=== PATIENT | male | born 1995 | race Hispanic/Latino ===

== ENCOUNTER 2016-12-17 06:37 | Day surgery (SDC) | payer OTHER ==
[2016-12-17] VITALS (9 sets, daily range): BP systolic 89–119; BP diastolic 59–76; PULSE 60–78; RESP 15–22; O2SAT 98–100
[~2016-12-17] VITALS: Ht 165.1 cm; Wt 64.9 kg
[~2016-12-17 06:37] MED LIST: CeFAZolin Inj 2 GM in IV Premix 1 EACH IV ONE
[2016-12-17] MEDS ORDERED: MetoCLOpramide 5 mg/mL 2 mL Inj ONE (06:38)
[2016-12-17] MEDS ORDERED: Ketamine 10 mg/mL 20 mL Inj ONE (06:38)
[2016-12-17] MEDS ORDERED: Lidocaine PF 1% 30 mL Inj ONE (06:38)
[2016-12-17] MEDS ORDERED: Dexamethasone 4 mg/mL Inj ONE (06:38)
[2016-12-17] MEDS ORDERED: Propofol 10,000 mCg/mL 20 mL Inj ONE (06:38)
[2016-12-17] MEDS ORDERED: Ondansetron 2 mg/mL 2 mL Inj ONE (06:38)
[2016-12-17] MEDS ORDERED: fentaNYL-PF 50 mCg/mL 2 mL Inj ONE (06:38)
[2016-12-17] MEDS ORDERED: CeFAZolin 2 Gm/50 mL D5W Duplex Bag IV ONE (07:05)
[2016-12-17] MEDS: Lactated Ringer's 1,000 ML IV SCH ×2 (07:11→08:36)
--- NOTE | 2016-12-17 08:31 | PCM.HPANE ---
Patient Data Date of Service: Dec 17, 2016 Surgeon Admitting Provider: Attending Provider:Zoila Hardy MD Primary Care Physician:Millie Other Provider:Diego Alfred Anesthesia Reason for Visit Left Kidney Stone Ht/WT & BMI Height (Feet): 5 Height (Inches): 5 Weight (Kilograms): 64.9 Body Mass Index 23.00 Allergies Coded Allergies: Penicillins (Verified Allergy, Unknown, Rash, 12/16/16) Past Anesthesia History Anesthesia History: Denies:: Abnormal Airway, Anesthesia Reactions, Difficult Intubation, Fam Anesthesia Reaction, Fam Malignant Hypertherm, Malignant Hyperthermia Diabetes History Hx Diabetes?: No MRSA MRSA: No Medications Hypertension Medication: No Home Meds Incl Beta Jess: No No Active Prescriptions or Reported Meds History History of ENT Problems?: No HEENT History: Denies:: Abnormal Airway Difficult Intubation Dysphagia Hearing Problem Sinus Problem TMJ Denture Type: None Teeth Condition: Within Normal Limits Hx of Heart Problems?: No Cardiovascular History: Denies:: AICD Abdominal Aortic Aneurism Atrial Fibrillation Cardiac Surgery Chest Pain Congestive Heart Failure Coronary Artery Disease Edema Heart Murmur Hypertension Irregular Heartbeat Pacemaker Peripheral Vascular Rheumatic Fever Thrombophlebitis Valvular Heart Disease Hx of Respiratory Problem?: No Respiratory History: Denies:: Dyspnea Use of C-PAP Machine Use of Inhalers / NEBS Hx Neurologic Problems?: No Neurological History: Denies:: CVA Seizures TIA Other Neurological Pertinent: no LE neuropathy/radiculopathy Hx of GI Problems?: No Gastrointestinal History: Denies:: Gastroesphageal Reflux Liver Disease Hx of Problems?: Yes Genitourinary History: Positive for:: Kidney Stones (LEFT-SIDED) Denies:: HX of Hemodialysis HX of Peritoneal Dialysis: No Male Hx: Denies:: Prostate Problems Scrotal Mass Testicular Surgery Skin History: Denies:: History Skin Disorders? Pressure Ulcers Hx Musculoskeletal Problems?: No Musculoskeletal History: Positive for:: Musculoskeletal Trauma (thoracic & lumbar back pain) Hx of Psycho/Social Problems?: No Hx Surgeries?: No Other History: Denies:: Cancer Endocrine Disease Hospitalization Thyroid Disease History Blood Transfusions: Positive for:: Accept Blood Products? Denies:: Blood Transfusions Hx Diabetes: No Hx Alcohol Use: YesAlcoholic Drinks Per Day: 8 mixed drinks a weekHx Substance Use: No Smoking Status: Former Smoker (quit 3yrs ago) Stop/Bang Treated for Sleep Apnea?: No Do You Have a CPAP Machine?: No S-Snoring: Do You Snore Loudly: No T-Tired: feel tired, fatigued: No O-Obsered: Observed not breath: No P-Blood Pressure: treated: No B- Body Mass Index > 35 kg/m2: No A- Age over 50: No N- Neck Large Circumference: No G- Gender Male: Yes REGINALDO Total Score: 1 REGINALDO Risk Assessment: Low Risk, <3 Yes Risk Assessment Category Category 1A: Patient has history of documented sleep apnea, and HAS NOT received any narcotic, sedative or anesthesia administration during this stay. Category 1B: Patient has history of documented sleep apnea, and HAS received any narcotic , sedative or anesthesia administration during this stay Category 2: Patient has SUSPECTED Obstructive Sleep Apnea, and HAS received any narcotic , sedative or anesthesia administration during this stay. Category 3: Patient has SUSPECTED Obstructive Sleep Apnea and HAS NOT received narcotic, sedative or anesthesia administration during this stay. Category 4: Outpatient in Procedural Areas with known sleep apnea or who screen positive for High Risk via the STOP/BANG questionnaire. Exam Exam Vital Signs Vital Signs Date Time Temp Pulse Resp B/P Pulse Ox O2 Delivery O2 Flow Rate FiO2 12/17/16 07:11 36.2 60 16 108/65 98 Room Air General Appearance: Alert, Oriented X3, Cooperative, No Acute Distress HEENT/AIRWAY: MP 2 Lungs: Normal Air Movement Heart: Exam Unremarkable, Regular Rate/Rhythm, Normal S1, Normal S2, No Murmurs /Rubs/Gallops Meds/Labs/Diagnostics Admission Meds Current Medications Lactated Ringer's (Lr) 1,000 ml @ 120 mls/hr Q8H20M IV Last administered on t 07:11; Start 12/17/16 at 05:00; Stop 12/17/16 at 13:19 Plan Impression Patient chart reviewed, patient interviewed and anesthestic plan with risks, benefits, and alternatives discussed, and informed consent obtained. NPO per Anesth. Guidelines: Yes ASA Physical Status: ASA1 Normal Healthy Anesthetic Plan: GA Bene/Risks/Altern/Consents: Yes HP Complete Prior to Induction: Yes Nicholas Pelletier MD Dec 17, 2016 08:31
[2016-12-17] MEDS ORDERED: Belladonna Alk-Opium 60 mg Rectal Suppository RECTAL ONE ×2 (08:46→09:14)
[2016-12-17] MEDS ORDERED: Lactated Ringer's 1,000 ML IV SCH (09:02)
[2016-12-17] MEDS ORDERED: Lactated Ringer's 500 ML IV PRN (09:02)
[2016-12-17] MEDS ORDERED: Dexamethasone 4 mg/mL Inj IVPUSH PRN (09:05)
[2016-12-17] MEDS ORDERED: EPHEDrine Sulfate 50 mg/mL Inj IVPUSH PRN (09:05)
[2016-12-17] MEDS ORDERED: HYDROmorphone 1 mg/mL Inj IVPUSH PRN (09:05)
[2016-12-17] MEDS ORDERED: Phenylephrine 10,000 mCg/mL Inj IVPUSH PRN (09:05)
[2016-12-17] MEDS ORDERED: fentaNYL-PF 50 mCg/mL 2 mL Inj IVPUSH PRN (09:05)
[2016-12-17] MEDS ORDERED: MetoCLOpramide 5 mg/mL 2 mL Inj IVPUSH PRN (09:05)
[2016-12-17] MEDS ORDERED: Ondansetron 2 mg/mL 2 mL Inj IVPUSH PRN (09:05)
[2016-12-17] MEDS ORDERED: Phenazopyridine 97.5 mg Tablet PO PRN (09:50)
[2016-12-17] MEDS ORDERED: Ondansetron 8 mg ODT Tablet PO PRN (09:50)
[2016-12-17] MEDS ORDERED: HYDROcodone-APAP 5-325 mg Tablet PO PRN (09:50)
--- NOTE | 2016-12-17 10:49 | DRSVH ---
PROCEDURE: X-RAY KUB ([id number]) INDICATIONS: LEFT KIDNEY STONE TECHNIQUE: One view of the abdomen acquired. COMPARISON: Outside Film, CR, XR KUB, 09/23/2016, 10:53. FINDINGS: Surgical changes and devices: None. Bowel: Mild fecal loading. Soft tissues: 1.3 cm calcification projected over the mid to lower pole of the left kidney. Bones: No suspicious bony lesions. IMPRESSION: 1.3 cm ossification projected over the left kidney similar to prior outside KUB. Dictated by: Vasu Hua RRA Interpreted: Juma Bryant MD on 12/17/2016 at 9:01 Approved by: Juma Bryant M.D. on 12/17/2016 at 10:48
--- NOTE | 2016-12-17 20:18 | PCM.ANEP1 ---
Post Anesthesia PACU Phase 1 Assessment Date of Service: Dec 17, 2016 Anesthetic Administered: GA Level of Alertness: Awake, talking LAINEZ's with Equal Strength: Yes Pain: No Pain Scale Score: 0 Nausea or Vomiting: No CV Function & Hydration Stable: Yes Airway Device: none Lungs: Normal Air Movement PACU Phase 2 Assessment Complications: No Follow up Care: N/A Patient Instructions Provided: N/A Nicholas Pelletier MD Dec 17, 2016 20:18
--- NOTE | 2016-12-18 13:37 | OP ---
[address] [address] OPERATIVE REPORT PATIENT: HARPER CORNEJO : 1995 MR#: [id number] ADMIT: 12/17/2016 JOB ID: [id number] DATE OF SURGERY: 12/17/2016 SURGEON: Zoila Hardy M.D. PREOPERATIVE DIAGNOSIS(ES): POSTOPERATIVE DIAGNOSIS(ES): PROCEDURE: Left-sided shockwave lithotripsy with left-sided double-J stent placement. ANESTHESIA: General. PREOPERATIVE DIAGNOSIS(ES): Left-sided nephrolithiasis visible on plain film. Diagnosis of right-sided nephrolithiasis on ultrasound not visible on plain film. PREOPERATIVE DIAGNOSIS(ES): Left-sided nephrolithiasis visible on plain film. Diagnosis of right-sided nephrolithiasis on ultrasound not visible on plain film. INDICATIONS: As above, he was counseled about risks and benefits, treatment options, elected shock wave lithotripsy for his larger left-sided stone, 1.5 x 9-10 mm stone on the left. Counseled about risks and benefits of stent placement as well. I suggested we proceed with this given the size of the stone. The patient is in agreement and wished to proceed. PROCEDURE IN DETAIL: After appropriate informed consent was obtained, the patient was brought to the operating room. Received IV Ancef prior to onset of the procedure. SCDs placed. He was made comfortable in the dorsal lithotomy position. All pressure points carefully padded. Cleaned, prepped, and draped in the usual sterile fashion. Rigid scope was introduced into the patient's bladder. Left-sided ureteral orifice was identified with good reflux. It was cannulated. The wire was advanced up into the patient's renal pelvis. The stone was readily visible. A 6-Palauan by 26 cm double-J stent was advanced over the wire under fluoroscopic and good direct visual guidance into position with a curl in renal pelvis and a curl in patient's bladder visually. String was left off. The patient's bladder was drained. We then repositioned him carefully to the supine position. All pressure points carefully padded. The shock wave was brought in and we were able, as above, to see the stone very well. It was a hard stone, quite large. It was treated for a total of 2500 shocks at power level 6.5. There was a pause after 200 shocks, a rate of 80. Stone had some fair evidence of break up. It was still visible at the termination of the procedure, but the entire area of visible stone was treated very nicely. He tolerated this well. Skin was in good condition. He was awakened, taken in stable condition to the postanesthesia care unit. Plan will be for him to return to clinic in 2-3 weeks with preclinic KUB for potential stent removal versus further treatment planning.
== END 2016-12-17 23:59 | disposition home or self-care (01) ==
LOC: SAS 06:37
PROVIDERS: ATTEND Urology
DX: N20.0 Calculus of kidney (principal); Z87.891 Personal history of nicotine dependence
CPT/HCPCS: 50590; 52332; 74000; C2617; J0690; J1100; J2250; J2405; J2704; J2765; J3010; J7120